=== PATIENT | female | born 1985 | race Caucasian/White ===

== ENCOUNTER 2018-11-14 13:50 | Emergency (ER) | payer OTHER ==
[~2018-11-14] VITALS: Ht 160 cm; Wt 65.8 kg
[~2018-11-14 13:50] MED LIST: AMOXICILLIN500 MG PO; CHLORDIAZEPOXID25 MG PO; CYCLOBENZAPRINE5 MG PO; HYDROXYZINE HCL50 MG PO; IBUPROFEN600 MG PO; MULTIVITAMINS1 EAC7 PO; ULTRAM50 MG PO
[2018-11-14] MEDS ORDERED: LEXAPRO10 MG PO (14:32)
[2018-11-14] MEDS ORDERED: ONDANSETRON ODT8 MG PO (17:07)
[2018-11-14] MEDS ORDERED: PROTONIX40 MG PO (17:07)
== END 2018-11-14 17:20 | disposition home or self-care (01) ==
LOC: ED 13:50
DX: F10.20 Alcohol dependence, uncomplicated (principal); R11.2 Nausea with vomiting, unspecified; Z88.5 Allergy status to narcotic agent; Z88.8 Allergy status to other drugs, medicaments and biological substances; Z79.899 Other long term (current) drug therapy
CPT/HCPCS: 74177; 80053; 81001; 82150; 83690; 84703; 85025; 99284-25; J1200; J1885; J2060; J2405; J2550; J3411; J7042; Q9967

== ENCOUNTER 2018-11-14 19:16 | Emergency (ER) | payer OTHER ==
[~2018-11-14] VITALS: Ht 160 cm; Wt 65.8 kg
[~2018-11-14 19:16] MED LIST changes: +LEXAPRO10 MG PO; +ONDANSETRON ODT8 MG PO; +PROTONIX40 MG PO
--- OUTSIDE RECORDS SUMMARY | 2018-11-14 19:18 | XMS ---
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 Sanchez VISIT COUNT (12 MO.) 3 YAQUELIN Otto TOTAL 3 NOTE: Visits indicate total known visits. ED/UCC VISIT TRACKING (12 MO.) 11/14/2018 19:16 [facility] Garcia [place] TYPE: Emergency COMPLAINT: - ALLERGIC REACTION 11/14/2018 13:50 [facility] Garcia [place] TYPE: Emergency COMPLAINT: - VOMITING, CHEST PAIN 04/20/2018 07:[address] [facility] [place] TYPE: Emergency COMPLAINT: - CHEST/BACK PAIN DIAGNOSES: - Alcohol dependence with withdrawal, unspecified - Other ad terminal makeup operator (current) drug therapy - Blood alcohol level of less than 20 mg/100 ml - Pain in thoracic spine - Radiculopathy, thoracic region - Allergy status to narcotic agent status INPATIENT VISIT TRACKING (12 MO.) No inpatient visits to display in this time frame [email or web address]
--- NOTE | 2018-11-15 00:35 | EKG ---
[facility] [address] [facility] [address] [facility] [place] [address] Signed Sinus tachycardia Left axis deviation Septal infarct , age undetermined Abnormal ECG When compared with ECG of 20-APR-2018 07:54, Significant changes have occurred Confirmed by SERGE HUMPHREY MD ([id number]) on 11/15/2018 12:34:58 AM Electronically Signed By: SERGE HUMPHREY MD 11/15/18 0035 PATIENT NAME: POSADASDAVID RENY Electrocardiogram DATE OF : 89 PHYSICIAN: SERGE HUMPHREY MD REPORT #: [id number] REPORT IS CONFIDENTIAL AND NOT TO BE RELEASED WITHOUT AUTHORIZATION
== END 2018-11-14 21:08 | disposition left against medical advice (07) ==
LOC: ED 19:16
DX: R11.10 Vomiting, unspecified (principal); R00.0 Tachycardia, unspecified; Z88.5 Allergy status to narcotic agent; Z88.8 Allergy status to other drugs, medicaments and biological substances; Z88.1 Allergy status to other antibiotic agents; Z79.899 Other long term (current) drug therapy
CPT/HCPCS: 36415; 80053; 83690; 85025; 93005; 93010; 96361; 96374; 99284-25; J2765; J7030

== ENCOUNTER 2018-11-15 06:22 | Emergency (ER) | payer OTHER ==
[~2018-11-15] VITALS: Ht 160 cm; Wt 65.8 kg
--- OUTSIDE RECORDS SUMMARY | 2018-11-15 06:24 | XMS ---
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 Sanchez VISIT COUNT (12 MO.) 4 YAQUELIN Otto TOTAL 4 NOTE: Visits indicate total known visits. ED/UCC VISIT TRACKING (12 MO.) 11/15/2018 06:22 [facility] Garcia [place] TYPE: Emergency COMPLAINT: - CARDIAC ARREST 11/14/2018 19:16 YAQUELIN Garcia OR TYPE: Emergency COMPLAINT: - POSS ALLERGIC REACTION 11/14/2018 13:50 YAQUELIN Garcia [place] TYPE: Emergency COMPLAINT: - VOMITING, CHEST PAIN 04/20/2018 07:35 [facility] Garcia [place] TYPE: Emergency COMPLAINT: - CHEST/BACK PAIN DIAGNOSES: - Alcohol dependence with withdrawal, unspecified - Other [facility] (current) drug therapy - Blood alcohol level of less than 20 mg/100 ml - Pain in thoracic spine - Radiculopathy, thoracic region - Allergy status to narcotic agent status INPATIENT VISIT TRACKING (12 MO.) No inpatient visits to display in this time frame [id number]
--- NOTE | 2018-11-15 14:00 | NUR ---
I ARRIVED TO THE OVERHEAD PAGE FOR DONNY CANNON IN ED. T HAD RECEIVED CPR INTRANSIT FOLLOWING CPR PERFORNED BY. I MADE NOTIFICATIONS TO PT'S SIG OTHER JOSE A AND HER MOTHER WHO IS IN [place] ON VACATION. I WAS UNABLE TO TALK TO HER DIRECTLY. LEFT [facility] FOR HER TO CALL ME SOON POSSIBLE. WHEN JOSE A ARRIVED, I EXPLAINED WHAT WS HAPPENING, HE STATED HE UNDERSTOOD. PT IS TO BE TRANSFERRED TO [facility] WILL FOLLOW NEEDED
--- NOTE | 2018-11-15 14:13 | NUR ---
PT'S SIG OTHER ARRIVED, I BROUGHT HIM UP TO THE MINUTE ON WHAT IS HAPPENING. [facility] ARRIVED TO TRANSPORT BY [facility] EMT TO AIRPORT TO AIRCRAFT. PT CODED AGAIN,JOSE A STOOD WITH ME CPR WAS BEING PERFORMED. WHEN HE WAS ALLOWED HE WENT IN AND STOOD NEXT TO PT AND REASSURED PT. SHE WAS ENTEBATED-I ENCOURAGED HIM TO TALK TO HER THOUGH SHE COULD HEAR. THEY LOADED HER, I GAVE HIM A [facility] PACK LIST. HE SAID HIS DAD WAS COMING TO PICK HIM UP AND TAKE HIM TO MEET PT AT [facility]. I HAD PRAYER WITH PT, GIVING REASSURANCE. HE REQUESTED I CONTACT PT'S SON'S SCHOOL-[employer]. I CONNECTED WITH SCHOOL'S PRINCIPAL TIFFANIE RUSSELL. I STILL HAVE NOT HEARD FROM HER MOTHER ON VACATION IN [place], HER FATHER LIVES IN [place] AND NO ONE SEEMS TO HAVE CONTACT INFO OR EVEN A NAME. WILL FOLLOW
--- NOTE | 2018-11-15 14:25 | NUR ---
CODE KASSANDRA WAS CALLED OVERHEAD, PT WAS RETURNING IN AMBULANCE. SHE REPEATEDLY CODED, L.F. STAFF WAS NOT ABLE TO LOAD HER ON AIRCRAFT. CAME BACK TO [facility], I COULD VISIBLY SEE STAFF DOING CPR ON PT. I NOTIFIED JOSE A HE MAY WANT TO RETURN TO [facility]-WHICH HE DID. DR KILGORE AND FLIGHT CREW CALLED TOD @ 0954 HRS. PT WAS BROUGHT IN TO ED RM 10. TOOK JOSE A IN TO BE WITH PT, AND NOTIFIED PTS FATHER OF HER CHILD MUKUND AT WORK. HE ARRIVED WITH HIS MOTHER AND PT'S SON JULITA. I ESCORTED THEM INTO PT'S RM. CALLED [employer] USING PUNCH MACHINE OPERATOR'S ROTATION. JOSE A TOOK PT'S RINGS WITH HIM. EXTENDED CONDOLENCES. CALLED PT'S MOTHER JESUS MANUEL AGAIN-WAS ABLE TO TALK TO HER. HER SON HAD NOTIFIED HER-I AGAIN EXTENDED CONDOLENCES, SHE THANKED ME AND I GAVE HER A BRIEF HISTORY ON WHAT HAD HAPPENED. SHE INQUIRED ABOUT HER G.SON-I INFORMED HER HE WAS WITH HIS FATHER. I THEN WAS INFORMED MY JESUS MANUEL THAT SHE RAISED THE CHILD-HE IS MINE! I INFORMED HER THAT I COULD NOT HELP HER WITH THIS AND THAT SHE WOULD HAVE TO GO THROUGH AUTHORITIES. SHE CALMED A MOMENT, THANKED ME AND REQUESTED I SEND HER HOME INFO WHICH I DID. [facility] ALSO CAME AND MADE A REPORT. MAY GOD BLESS THEM.
--- NOTE | 2018-11-15 23:37 | EKG ---
[facility] [address] [facility] [address] [facility] [place] [address] Signed Sinus rhythm Left axis deviation Low voltage QRS Inferior infarct , age undetermined Abnormal ECG No previous ECGs available Confirmed by SERGE HUMPHREY MD ([id number]) on 11/15/2018 11:37:44 PM Electronically Signed By: SERGE HUMPHREY MD 11/15/18 2337 PATIENT NAME: DAVID POSADAS Electrocardiogram DATE OF : 89 PHYSICIAN: SERGE HUMPHREY MD REPORT #: [id number] REPORT IS CONFIDENTIAL AND NOT TO BE RELEASED WITHOUT AUTHORIZATION
--- NOTE | 2018-11-15 23:37 | EKG ---
[facility] [address] [facility] [place] [address] Signed Normal sinus rhythm Low voltage QRS Prolonged QT Abnormal ECG No previous ECGs available Confirmed by SERGE HUMPHREY MD ([id number]) on 11/15/2018 11:37:12 PM Electronically Signed By: SERGE HUMPHREY MD 11/15/18 2337 PATIENT NAME: DAVID POSADAS Electrocardiogram DATE OF : [birth year] PHYSICIAN: SERGE HUMPHREY MD REPORT #: [id number] REPORT IS CONFIDENTIAL AND NOT TO BE RELEASED WITHOUT AUTHORIZATION
== END 2018-11-15 08:35 | disposition short-term general hospital (02) ==
LOC: ED 06:22
DX: I46.9 Cardiac arrest, cause unspecified (principal); Z88.5 Allergy status to narcotic agent; Z88.8 Allergy status to other drugs, medicaments and biological substances; Z88.1 Allergy status to other antibiotic agents; Z79.899 Other long term (current) drug therapy
CPT/HCPCS: 31720; 36415; 36600; 51702; 71045; 80053; 82803; 84484; 84703; 85025; 85610; 85730; 92950; 93005; 93010; 94002; 94799; 99285-25; G0480; J0171; J7030